=== PATIENT | female | born 1960 | race Caucasian/White ===

== ENCOUNTER → 2016-12-11 | Outpatient (CLI) | payer BC ==
--- NOTE | 2016-12-14 15:13 | XR ---
EXAMINATION TYPE: XR chest 2V DATE OF EXAM: 12/11/2016 COMPARISON: NONE INDICATION: Chronic cough TECHNIQUE: Frontal and lateral views of the chest are obtained. FINDINGS: The heart size is normal. The pulmonary vasculature is normal. The lungs are clear. There may be slight exaggeration of the thoracic kyphosis. IMPRESSION: 1. No acute pulmonary process.
== END ==
LOC: RADXRYALE 15:22
PROVIDERS: ATTEND Family Medicine
DX: R05 Cough (principal)
CPT/HCPCS: 71020

== ENCOUNTER → 2016-12-21 | Outpatient (CLI) | payer BC, MEDICARE ==
--- NOTE | 2016-12-22 07:04 | CT ---
EXAMINATION TYPE: CT chest w con DATE OF EXAM: 12/21/2016 COMPARISON: Chest x-ray December 11, 2016 HISTORY: chronic cough for one year per patient. Lung granuloma and abnormal x-ray per order. CT DLP: 455.6 mGycm. Automated Exposure Control for Dose Reduction was Utilized. TECHNIQUE: CT scan of the thorax is performed following with IV Contrast, patient injected with 100 mL of Omnipaque 300. FINDINGS: LUNGS: There is some linear scarring medially in the right middle lobe near axial image 28 near right heart border. There is additional patchy linear atelectasis and/or scarring at both lung bases. Ther e is 5 x 4 mm peripheral nodule right lung base anterolaterally on axial image 37. No greater than 6 mm noncalcified parenchymal nodule or mass is seen. No pleural effusion or pneumothorax is present bi laterally. No groundglass opacity or suspicious consolidation is seen bilaterally. MEDIASTINUM: There are no greater than 1 cm hilar or mediastinal lymph nodes. No cardiomegaly or si gnificant pericardial effusion is seen. There is bovine type arch which is normal variant. There is mild calcified plaque in arch and aortic branch vessels. OTHER: There are bilateral subglandular saline implants. Along the anterior medial margin in the righ t breast there is oval 1.5 x 0.8 cm lesion which correlates with mammogram and biopsy clip on November study. Liver is low dense suggesting fatty infiltration some fatty sparing in deeper tissue is noted. There is mild to moderate multilevel spurring in the mid thoracic spine with slightly exagger ated kyphosis and slight scoliotic curvature noted. IMPRESSION: No significant acute pulmonary process. No worrisome mass or adenopathy. Some scattered m ild scarring in the lower lungs.
== END | disposition home or self-care (01) ==
LOC: RADCTMAIN 16:03
PROVIDERS: ATTEND Family Medicine
DX: J98.4 Other disorders of lung (principal)
CPT/HCPCS: 71260; Q9967

== ENCOUNTER → 2017-01-11 | Outpatient (CLI) | payer MEDICARE ==
--- NOTE | 2017-01-13 13:19 | MM ---
Reason for exam: screening (asymptomatic). Last mammogram was performed 1 year and 1 month ago. History: Patient is postmenopausal and is nulliparous. Family history of breast cancer in maternal aunt at age 60. Benign stereotactic core biopsy of the right breast, August 22, 2004. Saline implants in both breasts, 1998. Benign core biopsy of the right breast, April 08, 1998. Benign excisional biopsy of the right breast, 1997. Took hormonal contraceptives for 16 years beginning at age 15. Taking estrogen for 2 years beginning at age 48. Physical Findings: A clinical breast exam by your physician is recommended on an annual basis and results should be correlated with mammographic findings. MG 3D Screen Mammo Imp/Cad Bilateral CC, MLO, and ID view(s) were taken. Prior study comparison: December 11, 2015, bilateral MG screening mammo implant/CAD. There is chronic nodularity in the right breast. Bilateral breast prothesis. ASSESSMENT: Benign, BI-RAD 2 RECOMMENDATION: Routine screening mammogram of both breasts in 1 year.
== END | disposition home or self-care (01) ==
LOC: RADMAMWWP 12:53
PROVIDERS: ATTEND Family Medicine
DX: Z12.31 Encounter for screening mammogram for malignant neoplasm of breast (principal)
CPT/HCPCS: 77063; G0202

== ENCOUNTER → 2017-02-10 | Outpatient (CLI) | payer MEDICARE ==
--- NOTE | 2017-02-10 15:21 | CT ---
EXAMINATION TYPE: CT sinus wo con DATE OF EXAM: 02/10/2017 COMPARISON: NONE HISTORY: Frequent sinus infections and drainage per patient. Chronic sinusitis per order. CT DLP: 515 mGycm. Automated Exposure Control for Dose Reduction was Utilized. TECHNIQUE: CT scan of the sinuses is performed without contrast, axial images are obtained, coronal r eformatted images are also reviewed. FINDINGS: The paranasal sinuses including the frontal, ethmoid, sphenoid, and maxillary sinuses bila terally are well-aerated without abnormal opacification. The ostiomeatal complex is patent bilateral ly on the coronal images. Visualized portion of mastoid air cells show no abnormal opacification. The globes are intact bilate rally. Visualized portion of brain parenchyma shows mild age-related atrophy. IMPRESSION: The sinuses are clear and the ostiomeatal complex is patent bilaterally.
== END | disposition home or self-care (01) ==
LOC: RADCTMAIN 14:33
PROVIDERS: ATTEND Family Medicine
DX: J32.0 Chronic maxillary sinusitis (principal)
CPT/HCPCS: 70486

== ENCOUNTER → 2017-02-19 | Outpatient (CLI) | payer MEDICARE ==
[2017-02-19 18:11] LABS: Alternaria alternata IgE <0.10 kU/L; Aspergillus fumagatus IgE <0.10 kU/L; Cat Epith & Dander IgE <0.10 kU/L; Cladosporian herbarum IgE <0.10 kU/L; Dermato. farinae IgE <0.10 kU/L; Maple (Box Elder) IgE <0.10 kU/L; Orchard Grs(Cocksfoot) IgE <0.10 kU/L; Ragweed,Common IgE <0.10 kU/L
== END | disposition home or self-care (01) ==
LOC: LABWHC1 10:19
PROVIDERS: ATTEND Internal Medicine Critical Care Medicine
DX: J30.9 Allergic rhinitis, unspecified (principal)
CPT/HCPCS: 36415; 82785; 86003

== ENCOUNTER → 2017-03-19 | Outpatient (CLI) | payer MEDICARE ==
--- NOTE | 2017-03-19 10:31 | US ---
EXAMINATION TYPE: US abdomen complete DATE OF EXAM: 03/19/2017 COMPARISON: NONE CLINICAL HISTORY: R74.0 Nonspecific elevation of levels of transamin. no symptoms EXAM MEASUREMENTS: Liver Length: 18.9 cm Gallbladder Wall: 0.3 cm CBD: 0.6 cm Spleen: 8.9 cm Right Kidney: 12.9 x 5.3 x 5.2 cm Left Kidney: 11.1 x 4.9 x 6.2 cm Pancreas: wnl Liver: enlarged and difficult to penetrate with focal fatty sparing near GB fossa Gallbladder: wnl Evidence for sonographic Box's sign: NO CBD: wnl Spleen: wnl Right Kidney: wnl Left Kidney: wnl Upper IVC: wnl Abd Aorta: wnl The intrahepatic portion of the IVC and proximal abdominal aorta are within normal limits. There is no evidence of cholelithiasis. Common bile duct is unremarkable. The visualized portions of the pa ncreas are homogenous. The spleen is unremarkable. Kidneys are symmetric and free of hydronephrosis . No renal lesions are seen. IMPRESSION: 1. Fatty hepatic infiltration versus diffuse hepatocellular disease.
== END | disposition home or self-care (01) ==
LOC: RADUSWWP 09:36
PROVIDERS: ATTEND Family Medicine
DX: R74.0 Nonspecific elevation of levels of transaminase and lactic acid dehydrogenase [LDH] (principal)
CPT/HCPCS: 76700

== ENCOUNTER → 2017-12-01 | Outpatient (CLI) | payer MEDICARE ==
--- NOTE | 2017-12-03 14:00 | ECHOF ---
Referral Reason:I35.0 Nonrheumatic aortic (valve) stenosis MEASUREMENTS -------- HEIGHT: 160.0 cm WEIGHT: 97.5 kg BP: RVIDd: 2.4 cm (< 3.3) IVSd: 0.9 cm (0.6 - 1.1) LVIDd: 4.3 cm (3.9 - 5.3) LVPWd: 1.1 cm (0.6 - 1.1) IVSs: 1.2 cm LVIDs: 3.2 cm LVPWs: 1.2 cm LA Diam: 3.4 cm (2.7 - 3.8) LAESV Index (A-L): 36.02 ml/m Ao Diam: 2.9 cm (2.0 - 3.7) AV Cusp: 1.2 cm (1.5 - 2.6) LA Diam: 3.5 cm (2.7 - 3.8) MV EXCURSION: 18.048 mm (> 18.000) MV EF SLOPE: 60 mm/s (70 - 150) EPSS: 0.2 cm MV E Dameon: 0.82 m/s MV DecT: 227 ms MV A Dameon: 0.81 m/s MV E/A Ratio: 1.02 AV maxP.49 mmHg AV meanP.09 mmHg RAP: 5.00 mmHg RVSP: 36.15 mmHg FINDINGS -------- Sinus rhythm. This was a technically adequate study. The left ventricular size is normal. There is borderline concentric left ventricular hypertrophy. Overall left ventricular systolic function is normal with, an EF between 55 - 60 %. The right ventricle is normal in size. The left atrial size is normal. LA is moderately dilated 34-39 ml/m2 The right atrial size is normal. There is mild aortic valve sclerosis. There is no evidence of aortic regurgitation. Peak/mean gra dient across the Aortic Valve is 14.49mmHg / 7.09mmHg. Mild mitral annular calcification present. Mild mitral regurgitation is present. Mild tricuspid regurgitation present. There is mild pulmonary hypertension. The right ventricular systolic pressure, as measured by Doppler, is 36.15mmHg. There is no pulmonic regurgitation present. The aortic root size is normal. There is no pericardial effusion. CONCLUSIONS -------- 1. The left ventricular size is normal. 2. There is borderline concentric left ventricular hypertrophy. 3. Overall left ventricular systolic function is normal with, an EF between 55 - 60 %. 4. The right ventricle is normal in size. 5. The left atrial size is normal. 6. LA is moderately dilated 34-39 ml/m2 7. The right atrial size is normal. 8. There is mild aortic valve sclerosis. 9. Peak/mean gradient across the Aortic Valve is 14.49mmHg / 7.09mmHg. 10. Mild mitral annular calcification present. 11. Mild mitral regurgitation is present. 12. Mild tricuspid regurgitation present. 13. There is mild pulmonary hypertension. 14. The right ventricular systolic pressure, as measured by Doppler, is 36.15mmHg. 15. There is no pulmonic regurgitation present. 16. The aortic root size is normal. 17. There is no pericardial effusion. [employer] SPECIALIST: Marcia Mccallum RDCS
== END | disposition home or self-care (01) ==
LOC: RADECHMAIN 13:07
PROVIDERS: ATTEND Family Medicine
DX: I08.1 Rheumatic disorders of both mitral and tricuspid valves (principal); I27.20 Pulmonary hypertension, unspecified
CPT/HCPCS: 93306

== ENCOUNTER → 2019-01-03 | Outpatient (CLI) | payer MEDICARE ==
--- NOTE | 2019-01-03 20:35 | ECHOS ---
STRESS ECHOCARDIOGRAM INDICATIONS: Chest pain. MEDICATIONS: BASELINE HEART RATE: 71. BASELINE BLOOD PRESSURE: 120/44 MAXIMUM HEART RATE: 143 MAXIMUM BLOOD PRESSURE: 220/44 85% MPHR: 136 100% MPHR: 160 METS: 8.5 MAXIMUM STAGE REACHED: II TOTAL EXERCISE TIME: 7:02 CLINICAL INFORMATION: Baseline EKG revealed a normal sinus rhythm without significant ST-T changes. Patient walked on a standard Jeff protocol for 7 minutes 2 seconds, achieved a maximal heart rate of 143 beats per minute, which is more than 85% of predicted maximal. She developed some fatigue and shortness of breath but did not have any angina or arrhythmia. EKG did not reveal any ST-segment changes to indicate ischemia. Upsloping nonspecific ST-segment changes were noted. By EKG criteria, this is considered a negative stress echocardiogram with fair exercise capacity. Baseline echo images reveal normal wall motion and wall thickening of all segments. At peak exercise there was good augmentation of left ventricular wall motion and wall thickening of all segments, suggesting that there is no evidence of any stress-induced ischemia on this study. FINAL IMPRESSION: 1. Fair exercise capacity with a negative stress test by EKG criteria. 2. Normal stress echocardiogram without evidence of ischemia. MMODL / IJN: [id number] /
== END | disposition home or self-care (01) ==
LOC: RADNMMAIN 09:59
PROVIDERS: ATTEND Family Medicine
DX: R06.02 Shortness of breath (principal); I25.10 Atherosclerotic heart disease of native coronary artery without angina pectoris
CPT/HCPCS: 93351

== ENCOUNTER → 2019-02-20 | Outpatient (CLI) | payer MEDICARE ==
--- NOTE | 2019-02-21 08:33 | MM ---
Reason for exam: screening (asymptomatic). Last mammogram was performed 2 years and 1 month ago. History: Patient is postmenopausal and is nulliparous. Family history of breast cancer in maternal aunt at age 60. Benign stereotactic core biopsy of the right breast, August 22, 2004. Saline implants in both breasts, 1998. Benign core biopsy of the right breast, April 08, 1998. Benign excisional biopsy of the right breast, 1997. Took hormonal contraceptives for 16 years beginning at age 15. Taking estrogen for 2 years beginning at age 48. Physical Findings: A clinical breast exam by your physician is recommended on an annual basis and results should be correlated with mammographic findings. MG 3D Screen Mammo Imp/Cad Bilateral CC, MLO, and ID view(s) were taken. Prior study comparison: January 11, 2017, bilateral MG 3d screen mammo imp/cad. December 11, 2015, bilateral MG screening mammo implant/CAD. The breast tissue is heterogeneously dense. This may lower the sensitivity of mammography. Previous mammotome biopsy in the right breast. There is chronic nodularity in the right breast and in the left breast with grouped round calcification. There is no discrete abnormality. Bilateral subglandular implants redemonstrated. ASSESSMENT: Benign, BI-RAD 2 RECOMMENDATION: Routine screening mammogram of both breasts in 1 year.
== END | disposition home or self-care (01) ==
LOC: RADMAMWWP 07:03
PROVIDERS: ATTEND Family Medicine
DX: Z12.31 Encounter for screening mammogram for malignant neoplasm of breast (principal)
CPT/HCPCS: 77063; 77067

== ENCOUNTER → 2022-01-14 | Outpatient (CLI) | payer MEDICARE ==
--- NOTE | 2022-01-15 09:17 | MM ---
Reason for Exam: Screening (asymptomatic). Last mammogram was performed 2 year(s) and 11 month(s) ago. Patient History: Menarche at age 10. Patient has no children. Hysterectomy at age 38. Postmenopausal. Currently using Estrogen, beginning at age 48 for 2 years. Hormonal Contraceptives for 16 years from age 15 until age 31. 1997, Benign Excisional Biopsy on the right side. 08/22/2004, Benign Stereotactic Core Biopsy on the right side. 04/08/1998, Benign Core Biopsy on the right side. 1998, Bilateral Implants. Maternal aunt had breast cancer, age 60. Risk Values: Nancy 5 year model risk: 2.6%. NCI Lifetime model risk: 10.9%. Prior Study Comparison: 12/11/2015 Bilateral Screening Mammogram, [facility]. 01/11/2017 Bilateral Screening Mammogram, [facility]. 02/20/2019 Bilateral Screening Mammogram, [facility]. Tissue Density: There are scattered fibroglandular densities. Findings: Analyzed By CAD. Bilateral prepectoral saline implants redemonstrated. Unchanged large circumscribed nodule medial right breast with microclip reflecting prior biopsy. Additional smaller chronic nodularity on both sides. Focal asymmetry upper-outer quadrant right breast incompletely disperses on 3-D images and appears slightly more defined. There are evaluation recommended. Overall Assessment: Incomplete: need additional imaging evaluation, BI-RAD 0 Management: Special View Mammogram of the right breast. To include spot 3-D CC, Spot 3-D MLO, and 3-D lateral views. Also, targeted upper outer quadrant right breast ultrasound. Electronically signed and approved by: Reina Velazquez M.D. Radiologist
== END | disposition home or self-care (01) ==
LOC: RADMAMWWP 13:07
PROVIDERS: ATTEND Family Medicine
DX: Z12.31 Encounter for screening mammogram for malignant neoplasm of breast (principal)
CPT/HCPCS: 77063; 77067

== ENCOUNTER → 2022-01-26 | Outpatient (CLI) | payer MEDICARE ==
--- NOTE | 2022-01-26 14:10 | MM ---
Reason for Exam: Additional evaluation requested from abnormal screening. Last screening mammogram was performed less than 1 month ago. Patient History: Menarche at age 10. Patient has no children. Hysterectomy at age 38. Postmenopausal. Currently using Estrogen, beginning at age 48 for 2 years. Hormonal Contraceptives for 16 years from age 15 until age 31. 1997, Benign Excisional Biopsy on the right side. 08/22/2004, Benign Stereotactic Core Biopsy on the right side. 04/08/1998, Benign Core Biopsy on the right side. 1998, Bilateral Implants. Maternal aunt had breast cancer, age 60. Risk Values: Nancy 5 year model risk: 2.6%. NCI Lifetime model risk: 10.9%. Tissue Density: Right: The breast tissue is heterogeneously dense. This may lower the sensitivity of mammography. Findings: Analyzed By CAD. Prepectoral saline implants. 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 Lateral asymmetric density becomes less defined on additional views and shows no correlating finding on the MLO or lateral views. Precautionary 6 month follow-up recommended. Overall Assessment: Probably benign, BI-RAD 3 Management: Diagnostic Mammogram of the right breast in 6 months. 1. Patient should continue monthly self breast exams. 2. A clinical breast exam by your physician is recommended on an annual basis. 3. This exam should not preclude additional follow-up of suspicious palpable abnormalities. Results were given to the patient verbally at the time of exam. Electronically signed and approved by: Reina Velazquez M.D. Radiologist
== END | disposition home or self-care (01) ==
LOC: RADMAMWWP 13:31
PROVIDERS: ATTEND Family Medicine
DX: R92.8 Other abnormal and inconclusive findings on diagnostic imaging of breast (principal)
CPT/HCPCS: 77065; G0279; 77061

== ENCOUNTER → 2024-03-15 | Outpatient (CLI) | payer MEDICARE ==
--- NOTE | 2024-03-15 11:44 | MM ---
Reason for Exam: Follow-up at short interval from prior study. Last mammogram was performed 1 year(s) and 1 month(s) ago. Patient History: Menarche at age 10. Patient has no children. Hysterectomy at age 38. Postmenopausal. Currently using Estrogen, beginning at age 48 for 2 years. Hormonal Contraceptives for 16 years from age 15 until age 31. 1997, Benign Excisional Biopsy on the right side. 08/22/2004, Benign Stereotactic Core Biopsy on the right side. 04/08/1998, Benign Core Biopsy on the right side. 1998, Bilateral Implants. Maternal aunt had breast cancer, age 60. Risk Values: Nancy 5 year model risk: 2.8%. NCI Lifetime model risk: 10.3%. Prior Study Comparison: 01/14/2022 Bilateral MG 3D screen mammo imp/cad., [facility]. 01/26/2022 Right MG 3D work up w/cad RT, [facility]. 02/19/2023 Bilateral MG 3D diag mammo imp w/cad [facility], [facility]. Tissue Density: The breasts are heterogeneously dense, which may obscure small masses. Findings: Analyzed By CAD. Collapsed saline implants are noted. No suspicious calcifications. Previously sampled mass right breast. No new masses seen. Overall Assessment: Benign, BI-RAD 2 Management: Screening Mammogram of both breasts in 1 year. . Results were given to the patient verbally at the time of exam. Patient should continue monthly self-breast exams. A clinical breast exam by your physician is recommended on an annual basis. This exam should not preclude additional follow-up of suspicious palpable abnormalities. Note on Nancy scores and lifetime risk: 1. A Nancy score greater than 3% is considered moderate risk. If this is the case, consider specialist referral to assess eligibility for a risk reducing agent. 2. If overall lifetime risk for the development of breast cancer is 20% or higher, the patient may qualify for future screening with alternating mammogram and breast MRI. [facility], , 03/15/2024 11:27 AM. Electronically signed and approved by: Juwan Martínez M.D. Radiologis
== END | disposition home or self-care (01) ==
LOC: RADMAMWWP 10:59
PROVIDERS: ATTEND Family Medicine
DX: R92.8 Other abnormal and inconclusive findings on diagnostic imaging of breast
CPT/HCPCS: 77066